=== PATIENT | male | born 1955 | race Caucasian/White ===

== ENCOUNTER 2019-11-25 06:05 | Day surgery (SDC) | payer BC ==
[2019-11-25] MEDS ORDERED: Lactated Ringers 1,000 ML IV SCH (07:00)
[2019-11-25] MEDS ORDERED: DIPRIVAN 200 MG/20 ML IV ONE ×2 (07:41→08:13)
[2019-11-25] MEDS ORDERED: Ketamine HCl 50 MG/ML ONE (07:42)
[2019-11-25 09:18] VITALS: BP 144/89; PULSE 67; O2SAT 97
--- NOTE | 2019-11-25 10:38 | OP ---
SURGERY DATE/TIME: 11/25/2019 0757 PREOPERATIVE DIAGNOSIS: History of colon polyps. POSTOPERATIVE DIAGNOSIS: A 1 cm sessile polyp in the transverse colon and a small approximately 0.5 cm polyp in the rectosigmoid colon. PROCEDURE: Colonoscopy with cold forceps biopsy. SURGEON: Dr. Browning. ANESTHESIA: MAC. Medications given by anesthesia department. HISTORY: The patient is a 64 year-old white male presenting now for repeat colonoscopy. He previously had colon polyps removed. The patient was apprised of the risks of the procedure including the risk of perforation, phlebitis, untoward reaction to medication, bleeding and missed lesions. The patient verbalized his understanding and desired to have the procedure performed. DESCRIPTION OF PROCEDURE: The patient was given the medications by the anesthesia department. He had continuous pulse oximetry, ECG monitoring, intermittent blood pressure monitoring and tidal CO2 monitoring during the examination. He was placed in the left lateral decubitus position. A digital rectal examination was performed and revealed normal anal sphincter tone, no masses and normal prostate. The flexible Olympus pediatric colonoscope was used to intubate the rectum. A view of the colon was developed sequentially to the cecum. Upon insertion and withdrawal was noted a 1 cm sessile polyp in the transverse colon that was destroyed using two passes of the cold forceps biopsy. There was also noted to be polyp which appeared to be likely hyperplastic in rectosigmoid area and this was also destroyed with one pass of the cold biopsy forceps. The scope was removed from the patient who tolerated the procedure well and was sent back to OP recovery in good condition. The prep was noted to be fair. The sigmoid colon was difficult to evaluate due to spasm and the presence of opaque liquid in this area although we were easily able to pass through to get to the cecum. The evaluation of that area was problematic.
== END 2019-11-25 09:10 | disposition home or self-care (01) ==
LOC: SDC 06:05
PROVIDERS: ATTEND Family Medicine
DX: Z09 Encounter for follow-up examination after completed treatment for conditions other than malignant neoplasm (principal); Z86.010 Personal history of colon polyps; D12.3 Benign neoplasm of transverse colon; E11.9 Type 2 diabetes mellitus without complications; I10 Essential (primary) hypertension; Z79.899 Other long term (current) drug therapy
CPT/HCPCS: 82962; 88305; J2704

== ENCOUNTER 2022-10-31 20:24 | Emergency (ER) | payer MEDICARE ==
[2022-10-31] MEDS ORDERED: Sodium Chloride 0.9% 1000 ML 1,000 ML IV STA (21:04)
[2022-10-31] MEDS ORDERED: Hydromorphone 1 mg/ml Injection IV ONE (21:04)
[2022-10-31] MEDS ORDERED: TORAdol 30 mg Injection IV ONE (21:04)
[2022-10-31] MEDS ORDERED: Zofran 4 MG/2 ML VIAL IV ONE (21:04)
--- NOTE | 2022-10-31 21:04 | ERPHSYRPT ---
- History of Present Illness Time Seen by Provider: 10/31/22 21:04 Historian: patient Exam Limitations: no limitations Physician History: This is a 67-year-old white male patient of Dr. Browning who is diabetic, has history of hypertension hyperlipidemia and presents with sudden onset of right flank pain that was severe and radiated into his right testicle/groin. He pr esents to the emergency department writhing in pain. He has never had a thing like this before. He denies chest pain. He denies shortness of breath. Activities at Onset: none Quality: sharpness, stabbing Abdominal Pain Onset Location: LLQ Pain Radiation: groin (Right side) Severity of Pain-Max: moderate Severity of Pain-Current: moderate Modifying Factors: Improves With: nothing Associated Symptoms: nausea, testicular pain Previous symptoms: no prior history Allergies/Adverse Reactions: No Known Drug Allergies Allergy (Unverified 11/15/19 14:38) Home Medications: Aspirin EC 81 mg [Ecotrin 81 mg] 81 mg PO DAILY 11/15/19 [History] Lisinopril/Hydrochlorothiazide [Lisinopril-Hctz 20-12.5 mg Tab] 1 each PO DAILY 11/15/19 [History] Metformin HCl 500 mg [Glucophage 500 MG] 500 mg PO BIDWM 11/15/19 [History] Rosuvastatin Calcium [Crestor] 20 mg PO DAILY 11/15/19 [History] Travel Risk - International Travel Have you traveled outside of the country in past 3 weeks: No - Coronavirus Screening Are you exhibiting any of the following symptoms?: No Close contact with a COVID-19 positive Pt in past 14-21 Days: No - Review of Systems Constitutional: No Symptoms Eyes: No Symptoms Ears, Nose, & Throat: No Symptoms Respiratory: No Symptoms Cardiac: No Symptoms Abdominal/Gastrointestinal: No Symptoms Genitourinary Symptoms: No Symptoms Musculoskeletal: No Symptoms Skin: No Symptoms Neurological: No Symptoms Psychological: No Symptoms - Past Medical History Pertinent Past Medical History: Yes Neurological History: No Pertinent History ENT History: No Pertinent History Cardiac History: High Cholesterol, Hypertension Respiratory History: No Pertinent History Endocrine Medical History: Diabetes Type II Musculoskeletal History: No Pertinent History GI Medical History: No Pertinent History History: No Pertinent History Psycho-Social History: No Pertinent History Male Reproductive Disorders: No Pertinent History - Past Surgical History Past Surgical History: Yes Neuro Surgical History: No Pertinent History Cardiac: No Pertinent History Respiratory: No Pertinent History Gastrointestinal: No Pertinent History Genitourinary: No Pertinent History Musculoskeletal: No Pertinent History Male Surgical History: No Pertinent History - Social History Smoking Status: Current every day smoker How long have you smoked: 40 Exposure to second hand smoke: No Drug Use: none - Nursing Vital Signs Nursing Vital Signs: Initial Vital Signs Temperature 96.4 F 10/31/22 20:50 Pulse Rate 67 10/31/22 20:50 Respiratory Rate 18 10/31/22 20:50 Blood Pressure 135/75 10/31/22 20:50 O2 Sat by Pulse Oximetry 95 10/31/22 20:50 Pain Scale Pain Intensity 2 - Physical Exam General Appearance: no apparent distress, alert, anxiety Eye Exam: PERRL/EOMI, eyes nml inspection Ears, Nose, Throat Exam: normal ENT inspection, moist mucous membranes Neck Exam: normal inspection, non-tender, supple, full range of motion Respiratory Exam: normal breath sounds, lungs clear, airway intact, No chest tenderness, No respiratory distress Cardiovascular Exam: regular rate/rhythm, normal heart sounds, normal peripheral pulses Gastrointestinal/Abdomen Exam: soft, normal bowel sounds, other (Right flank sharp stabbing tenderness into right testicle), No tenderness Male Genitalia Exam: testicular tenderness Rectal Exam: not done Back Exam: normal inspection, normal range of motion, No CVA tenderness, No vertebral tenderness Extremity Exam: normal inspection, normal range of motion, pelvis stable Neurologic Exam: alert, oriented x 3, cooperative, front end assistant II-XII nml as tested, normal mood/affect, nml cerebellar function, nml station & gait, sensation nml Skin Exam: normal color, warm, dry Lymphatic Exam: No adenopathy SpO2 Interpretation: normal O2 Delivery: Room Air - Course Nursing assessment & vital signs reviewed: Yes Ordered Tests: Active Orders 24 hr Category Date Time Status IV Insertion STAT Care 10/31/22 21:04 Active ABDOMEN AND PELVIS W/0 CONTRAS [CT] Stat Exams 10/31/22 21:04 Taken AMYLASE Stat Lab 10/31/22 21:10 Completed CBC W DIFF Stat Lab 10/31/22 21:10 Completed CMP Stat Lab 10/31/22 21:10 Completed LIPASE Stat Lab 10/31/22 21:10 Completed UA W/RFX UR CULTURE Stat Lab 10/31/22 22:49 Completed Medication Summary Discontinued Medications Generic Name Dose Route Start Last Admin Trade Name Nasim PRN Reason Stop Dose Admin Hydrocodone Bitart/Acetaminophen 2 tab 10/31/22 22:38 Hydrocodone/Apap 5/325 1 Tab Tablet PO 10/31/22 22:39 SENT HOME W/ PATIENT ONE Hydromorphone HCl 1 mg 10/31/22 21:04 10/31/22 21:11 Hydromorphone 1 Mg/1ml Inj 1 Mg/Ml Syringe IV 10/31/22 21:05 1 mg STAT ONE Administration Hydromorphone HCl Confirm 10/31/22 21:07 Hydromorphone 1 Mg/1ml Inj 1 Mg/Ml Syringe Administered 10/31/22 21:08 Dose 1 mg .ROUTE .STK-MED ONE Sodium Chloride 1,000 mls @ 999 mls/hr 10/31/22 21:04 10/31/22 22:11 Sodium Chloride 0.9% 1000 Ml IV 10/31/22 22:04 Infused .Q1H1M STA Infusion Sodium Chloride Confirm 10/31/22 21:07 Sodium Chloride 0.9% 1000 Ml Administered 10/31/22 21:08 Dose 1,000 mls @ ud .ROUTE .STK-MED ONE Ketorolac Tromethamine 30 mg 10/31/22 21:04 10/31/22 21:11 Ketorolac Tromethamine 30 Mg/Ml Inj IV 10/31/22 21:05 30 mg STAT ONE Administration Ketorolac Tromethamine Confirm 10/31/22 21:07 Ketorolac Tromethamine 30 Mg/Ml Inj Administered 10/31/22 21:08 Dose 30 mg .ROUTE .STK-MED ONE Ondansetron HCl 4 mg 10/31/22 21:04 10/31/22 21:10 Ondansetron Hcl 4 Mg/2 Ml Vial IV 10/31/22 21:05 4 mg STAT ONE Administration Ondansetron HCl Confirm 10/31/22 21:07 Ondansetron Hcl 4 Mg/2 Ml Vial Administered 10/31/22 21:08 Dose 4 mg .ROUTE .STK-MED ONE Lab/Rad Data: Laboratory Result Diagrams 10/31/22 21:10 02/20/23 21:10 Laboratory Results 10/31/22 10/31/22 10/31/22 Range/Units 22:49 21:10 21:10 WBC 10.5 (4.0-10.5) x10^3/uL RBC 4.98 (4.1-5.6) x10^6/uL Hgb 14.6 (12.5-18.0) g/dL Hct 44.2 (42-50) % MCV 88.8 (78-100) fL MCH 29.3 (26-32) pg MCHC 33.0 (32-36) g/dL RDW 13.5 (11.5-14.0) % Plt Count 201 (150-450) x10^3/uL MPV 10.0 (7.5-11.0) fL Gran % 60.0 (36.0-66.0) % Immature Gran % (Auto) 0.5 H (0.00-0.4) % Nucleat RBC Rel Count 0.0 (0.00-0.1) % Eos # (Auto) 0.10 (0-0.5) x10^3/uL Immature Gran # (Auto) 0.05 H (0.00-0.03) x10^3u/L Absolute Lymphs (auto) 3.13 (1.0-4.6) x10^3/uL Absolute Monos (auto) 0.85 (0.0-1.3) x10^3/uL Absolute Nucleated RBC 0.00 (0.00-0.01) x10^3u/L Lymphocytes % 29.8 (24.0-44.0) % Monocytes % 8.1 (0.0-12.0) % Eosinophils % 1.0 (0.00-5.0) % Basophils % 0.6 (0.0-0.4) % Absolute Granulocytes 6.30 (1.4-6.9) x10^3/uL Basophils # 0.06 (0-0.4) x10^3/uL Sodium 139 (137-145) mmol/L Potassium 3.8 (3.5-5.1) mmol/L Chloride 103 (98-107) mmol/L Carbon Dioxide 24 (22-30) mmol/L Anion Gap 16.0 H (5-15) MEQ/L BUN 20 (9-20) mg/dL Creatinine 0.91 (0.66-1.25) mg/dL Estimated GFR > 60.0 ML/MIN Glucose 176 H (74-106) mg/dL Calcium 9.0 (8.4-10.2) mg/dL Total Bilirubin 0.30 (0.2-1.3) mg/dL AST 23 (17-59) U/L ALT 25 (0-50) U/L Alkaline Phosphatase 70 (38-126) U/L Serum Total Protein 7.6 (6.3-8.2) g/dL Albumin 4.6 (3.5-5.0) g/dL Amylase 63 (30-110) U/L Lipase 43 (23-300) U/L Urine Color Yellow (Yellow) Urine Appearance Clear (Clear) Urine pH 5.0 (4.6-8.0) Ur Specific [place] 1.025 (1.005-1.030) Urine Protein Negative (Negative) Urine Glucose (UA) Negative (Negative) mg/dL Urine Ketones Trace A (Negative) Urine Blood Negative (Negative) Urine Nitrite Negative (Negative) Urine Bilirubin Negative (Negative) Urine Urobilinogen 1.0 A (0.2) mg/dL Ur Leukocyte Esterase Negative (Negative) U Hyaline Cast (Auto) NONE SEEN (0-2) /LPF Urine Microscopic RBC 0-2 (0-5) /HPF Urine Microscopic WBC 0-2 (0-5) /HPF Ur Epithelial Cells None Seen (None Seen) /HPF Urine Bacteria None Seen (None Seen) /HPF Urine Culture Reflexed NO (NO) - Progress Progress: improved Progress Note: 10/31/22 22:30 CT scan of the abdomen pelvis without contrast shows a punctate right renal calculus. In addition, there is mild hydronephrosis with a 1 to 2 mm ureteral calculus at the UVJ. Counseled pt/family regarding: lab results, diagnosis, need for follow-up, rad results, smoking cessation Medical Desision Making - Independent Historian Additional History obtained from: Spouse - Discussion of managment Reviewed:: Test results Agreed on:: Treatment plan, need for follow-up - Diagnostic Testing Radiological Interpretation: Reviewed by me, Teleradiologist Report - Risk of complications Minimal Risk: Minimal risk of morbidity - Departure Departure Disposition: Home Clinical Impression: Right ureteral calculus Condition: Stable Critical Care Time: No Referrals: RG BROWNING [Primary Care Provider] - Follow up/PCP as directed Additional Instructions: Drink plenty of fluids. Use ibuprofen 600 mg orally 3 times a day for the next 4 days. Take your other medication as prescribed Prescriptions: Hydrocodone/APAP 5/325 [[place] 5/325 mg] 1 each PO Q8H PRN PRN #6 tablet MDD 3 PRN Reason: Pain Tamsulosin HCl 0.4 mg [Flomax 0.4 MG] 0.4 mg PO DAILY #7 cap
[2022-10-31] MEDS ORDERED: Zofran 4 MG/2 ML VIAL ONE (21:07)
[2022-10-31] MEDS ORDERED: Hydromorphone 1 mg/ml Injection ONE (21:07)
[2022-10-31] MEDS ORDERED: Sodium Chloride 0.9% 1000 ML 1,000 ML ONE (21:07)
[2022-10-31] MEDS ORDERED: TORAdol 30 mg Injection ONE (21:07)
[2022-10-31 21:13] LABS: BASOPHIL % 0.6 % (0.0-0.4); Basophil (Absolute #) 0.06 x10^3/uL (0-0.4); Hematocrit 44.2 % (42-50); Hemoglobin 14.6 g/dL (12.5-18.0); IMMATURE GRAN # 0.05 x10^3u/L (0.00-0.03); IMMATURE GRAN % 0.5 % (0.00-0.4); Lymphocyte (Absolute #) 3.13 x10^3/uL (1.0-4.6); Lymphocytes % 29.8 % (24.0-44.0); Mean Cell Volume 88.8 fL (78-100); Mean Corpuscular Hemoglobin 29.3 pg (26-32); Monocyte (Absolute #) 0.85 x10^3/uL (0.0-1.3); Monocytes % 8.1 % (0.0-12.0); Platelet Count 201 x10^3/uL (150-450); Red Blood Count 4.98 x10^6/uL (4.1-5.6); Red Cell Distribution Width 13.5 % (11.5-14.0); White Blood Count 10.5 x10^3/uL (4.0-10.5)
[2022-10-31 21:27] LABS: ALBUMIN 4.6 g/dL (3.5-5.0); ALKALINE PHOSPHATASE 70 U/L (38-126); AMYLASE 63 U/L (30-110); BLOOD UREA NITROGEN 20 mg/dL (9-20); CHLORIDE 103 mmol/L (98-107); Carbon Dioxide 24 mmol/L (22-30); Creatinine 1 0.91 mg/dL (0.66-1.25); EST GLOMERULAR FILTRATION RATE > 60.0 ML/MIN; Glucose 176 mg/dL (74-106); LIPASE 43 U/L (23-300); Potassium 3.8 mmol/L (3.5-5.1); SGOT/AST 23 U/L (17-59); SGPT/ALT 25 U/L (0-50); SODIUM 139 mmol/L (137-145); Total Protein 7.6 g/dL (6.3-8.2)
[2022-10-31 22:19] VITALS: BP 123/68
[2022-10-31] MEDS ORDERED: NORCO 5/325 MG PO ONE (22:38)
[2022-10-31 23:04] LABS: ADD URINE CULTURE? NO (NO); Appearance Clear (Clear); Bacteria None Seen /HPF (None Seen); Bilirubin Negative (Negative); Blood Negative (Negative); Epithelial Cells None Seen /HPF (None Seen); Glucose, Urine Negative (Negative); Hyaline Casts NONE SEEN /LPF (0-2); Ketones Trace (Negative); Leukocyte Esterase Negative (Negative); Nitrite Negative (Negative); Protein,Urine Dip Negative (Negative); RBC 0-2 /HPF (0-5); Specific Gravity 1.025 (1.005-1.030); WBC 0-2 /HPF (0-5)
[2022-10-31] MEDS ORDERED: NORCO 5/325 MG ONE ×2 (23:09→23:10)
[2022-10-31 23:28] VITALS: PULSE 69; O2SAT 95
--- NOTE | 2022-11-01 09:01 | XRAY ---
Indication: Right flank pain. Nausea and diarrhea. Multiple contiguous axial images obtained through the abdomen and pelvis without contrast using renal stone protocol. Comparison: None Lung bases demonstrate a few tiny bilateral calcified granulomas. Lingular fibrosis/scarring. Heart not enlarged. There is a 1-2 mm right UVJ calculus. Proximal right ureter minimally prominent along with mild hydronephrosis consistent with partial obstructive uropathy. At least 3 additional right renal punctate calculi. Left kidney demonstrates a few renal cysts, largest 4.1 cm mid pole. Noncontrasted stomach and bowel loops appear nonobstructed with normal appendix. Minimal sigmoid diverticulosis. No free fluid/air. A few tiny hepatic/splenic calcified granulomas. Remaining liver, gallbladder, pancreas, spleen, adrenal glands, kidneys, ureters, and bladder are unremarkable for noncontrast exam. Mild scattered aortoiliac calcifications without AAA. Osseous structures intact with mild/moderate degenerative changes throughout the spine, minimal levoscoliosis centered at L4, and mild degenerative changes both hips. Impression: 1. 1-2 mm right UVJ calculus producing partial obstruction as detailed. Additional right renal punctate calculi. 2. Chronic findings including left renal cysts, sigmoid diverticulosis, arteriosclerotic disease, chronic bony findings, and old granulomatous disease.
== END 2022-10-31 23:27 | disposition home or self-care (01) ==
LOC: ED 20:24
DX: N13.2 Hydronephrosis with renal and ureteral calculous obstruction (principal); R10.9 Unspecified abdominal pain; I10 Essential (primary) hypertension; E78.5 Hyperlipidemia, unspecified; E11.9 Type 2 diabetes mellitus without complications; Z79.891 Long term (current) use of opiate analgesic; Z79.84 Long term (current) use of oral hypoglycemic drugs; Z79.899 Other long term (current) drug therapy; Z72.0 Tobacco use
CPT/HCPCS: 36000; 36415; 74176; 80053; 81001; 82150; 83690; 85025; 96360; 96374; 96375; 99284; J1170; J1885; J2405; A9270-GY